=== PATIENT | female | born 1995 | race American Indian/Alaskan Native ===

== ENCOUNTER 2018-08-25 20:37 | Emergency (ER) | payer BC ==
[2018-08-25 21:04] VITALS: BP 127/81
--- NOTE | 2018-08-25 23:11 | XRay Report ---
Right forearm 2 views 2218 INDICATION: Puncture wound from broken glass I do not have a lateral view of the proximal forearm. No fractures or dislocations are seen. An elong ated glass fragment measuring 11 mm in length is seen in the soft tissues of the ventral distal forea rm superimposed on the distal radial metaphysis. No soft tissue gas is seen. Signer Name: Wolfgang Desai MD Signed: 08/25/2018 11:07 PM Workstation Name: [id number]
== END 2018-08-25 23:30 | disposition left against medical advice (07) ==
LOC: ED 20:37
DX: S61.511A Laceration without foreign body of right wrist, initial encounter (principal); W25.XXXA Contact with sharp glass, initial encounter; Y93.89 Activity, other specified; Y92.89 Other specified places as the place of occurrence of the external cause; Y99.8 Other external cause status; Z53.21 Procedure and treatment not carried out due to patient leaving prior to being seen by health care provider

== ENCOUNTER 2018-12-25 14:43 | Outpatient (CLI) | payer BC ==
[2018-12-25 14:59] LABS: Basophils % (Auto) 0.6 % (0.0-1.8); Eosinophils # (Auto) 0.2 K/mm3 (0.0-0.4); Eosinophils % (Auto) 3.1 % (0.0-4.3); Hematocrit 43.2 % (30.3-42.9); Hemoglobin 14.5 gm/dl (10.1-14.3); Lymphocytes # (Auto) 2.1 K/mm3 (1.2-5.4); Lymphocytes % (Auto) 37.1 % (13.4-35.0); Mean Corpuscular HGB Conc 34 % (30-34); Mean Corpuscular Volume 94 fl (79-97); Monocytes # (Auto) 0.5 K/mm3 (0.0-0.8); Monocytes % (Auto) 8.3 % (0.0-7.3); Platelet Count 167 K/mm3 (140-440); Red Cell Distribution Width 12.8 % (13.2-15.2)
[2018-12-25 15:21] LABS: Alanine Aminotransferase 16 units/L (7-56); Albumin 4.4 g/dL (3.9-5); BUN/Creatinine Ratio 21; Blood Urea Nitrogen 15 mg/dL (7-17); Calcium 9.2 mg/dL (8.4-10.2)
[2018-12-25 15:22] LABS: Hemolysis Index 6
== END 2018-12-25 14:44 | disposition home or self-care (01) ==
LOC: LAB 14:43
PROVIDERS: ATTEND Specialist
DX: G43.419 Hemiplegic migraine, intractable, without status migrainosus (principal); Z91.013 Allergy to seafood
CPT/HCPCS: 36415; 80053; 85025

== ENCOUNTER 2018-12-26 13:49 | Outpatient (CLI) | payer BC | END 2018-12-26 13:50 | disposition home or self-care (01) | LOC: LAB 13:49 | PROVIDERS: ATTEND Specialist | DX: G43.419 Hemiplegic migraine, intractable, without status migrainosus (principal) | CPT/HCPCS: 36415; 82607; 82747; 83921 ==